=== PATIENT | female | born 1995 | race Caucasian/White ===

== ENCOUNTER 2025-02-07 09:36 | Emergency (ER) | payer OTHER, SELFPAY ==
[2025-02-07 09:38] VITALS: BP 123/81
--- NOTE | 2025-02-07 10:20 | ED.GENMED ---
History of Present Illness
General
Chief Complaint: Medication Reaction
Time Seen by Provider: 02/07/25 09:53
History of Present Illness
History of Present Illness:
29-year-old female presents to the emergency department for evaluation of jitteriness and a palpitation sensation after accidentally sticking herself with an epinephrine needle. She is uncertain whether she depressed the plunger or not. The
epinephrine is prescribed to her however she has never required this in the past. Currently denies chest pain or dyspnea. No illicit substance use.
Review of Systems
Review of Systems
Allergies reviewed?: Yes
All Other Systems: ROS reviewed and negative except as documented in HPI and ROS
Phy Exam
Physical Exam
Physical Exam:
GEN: Well appearing, NAD, WDWN
HEENT: Oral mucosa moist, no scleral icterus
Cardiac: Regular rate
Lung: No respiratory distress, no tachypnea
MSK: No gross deformity or injuries
Skin: Good color, no pallor or jaundice, no rashes
Neuro: AO x3, moves all extremities freely
Psych: Calm, cooperative
Course
Orders/Labs/Results
Orders:
Orders
02/07/25 09:37
ECG [Electrocardiogram (*1)] Urgent
Reason for Study: Tachycardia
EKG- Treatment ONCE
Vital Signs
Initial and Last Documented VS:
Initial Vital Signs
Temp Pulse Resp BP Pulse Ox
98.3 F 87 19 123/81 100
02/07/25 09:38 02/07/25 09:38 02/07/25 09:38 02/07/25 09:38 02/07/25 09:38
Last Documented Vital Signs
Temp Pulse Resp BP Pulse Ox
98.3 F 91 14 123/81 98
02/07/25 09:38 02/07/25 10:18 02/07/25 10:18 02/07/25 09:38 02/07/25 10:21
MDM/Problems Addressed
MDM/Problems Addressed:
Patient without any cardiac dysrhythmias on EKG or telemetry. Vital signs stable. Epinephrine likely to wear off within the next hour to 2 hours thus patient is suitable for discharge home, ultimately unlikely that she administer the epinephrine
based on the mechanism of the injury
Comment
Comment:
EKG independently interpreted by me shows normal sinus rhythm at a rate of 68 with no ischemic changes
*Pulse Oximetry
SaO2: 98
Oxygen Mode of Delivery: Room air
Patient hypoxic: no
*Critical Care Note
Total Time (30-74mins, 75-104mins- exclusive of procedures): Not Applicable
ED Attending Note
-
Portions of this chart may have been created with voice recognition software.� Occasional wrong word or��sound alike� substitutions may have occurred due to the inherent limitations of voice recognition software.
Discharge Plan
Departure
Patient Disposition: Home (Routine Discharge)
Date of Disposition: 02/07/25
Time of Disposition: 10:20
Patient with high blood pressure during this ER visit?: No
Discharge Problem:
Needle stick injury
Activity Restrictions/Additional Instructions:
It is not likely that you were administered any epinephrine however you are stable at this time and the effects of the drug will wear off within the next 30 to 60 minutes
Interventions
Interventions:
*Risk Screen - Suicide Last Done: 02/07/25 09:38
*Neglect/Abuse Screening Last Done: 02/07/25 09:38
*Nursing Disposition Last Done: 02/07/25 10:54
ED- Pulmonary Assessment Last Done: 02/07/25 10:02
Discharge Date and Time
Discharge Date/Time: 02/07/25 10:54
Print Language: MONGOLIAN
== END 2025-02-07 10:54 | disposition home or self-care (01) ==
LOC: EMR 09:36
PROVIDERS: EMERGENCY PHYSICIAN Emergency Medicine; FAMILY PHYSICIAN Internal Medicine
DX: Z77.21 Contact with and (suspected) exposure to potentially hazardous body fluids (principal); W46.0XXA Contact with hypodermic needle, initial encounter; Y99.0 Civilian activity done for income or pay
CPT/HCPCS: 99283; 93005